=== PATIENT | female | born 1980 | race Caucasian/White ===

== ENCOUNTER 2018-04-15 09:53 | Inpatient (IN) | payer OTHER ==
[~2018-04-15] VITALS: Ht 170.2 cm; Wt 77.1 kg
[2018-04-15 11:11] LABS: ABSOLUTE BASOPHIL COUNT 0 /CUMM (0.0-0.2); ABSOLUTE EOSINOPHIL COUNT 0.1 /CUMM (0.0-0.7); ABSOLUTE GRANULOCYTE CT 5.7 /CUMM (1.4-6.5); ABSOLUTE LYMPH COUNT 1.5 /CUMM (1.2-3.4); ABSOLUTE MONOCYTE COUNT 0.7 /CUMM (0.10-0.60); BASOPHIL % 0.2 % (0.0-2.0); EOSINOPHIL % 0.9 % (0-5); GRANULOCYTE % 71.1 % (42.2-75.2); MEAN CORPUSCULAR HGB 32.3 PG (27.0-31.0); MEAN CORPUSCULAR HGB CONC 33.6 G/DL (33.0-37.0); MEAN CORPUSCULAR VOLUME 96.3 FL (81.0-99.0); MEAN PLATELET VOLUME 9.3 FL (7.4-10.4); PLATELET COUNT 177 /CUMM (130-400); RBC DISTRIBUTION WIDTH 13.6 % (11.5-14.5); RED BLOOD CELL CT 3.53 /CUMM (4.20-5.40); WHITE BLOOD CELL COUNT 8.1 /CUMM (4.8-10.8)
--- NOTE | 2018-04-15 13:56 | History & Physical ---
General Information and HPI MD Statement: I have seen and personally examined KAREN METCALF and documented this H&P. The patient is a 38 year old female at [40] weeks and [5] days gestation who presented with a chief complaint of [LOF]. Source of Information: patient Exam Limitations: no limitations History of Present Illness: 38-year-old, G1 para 0, 40 weeks 5 days intrauterine ,c/o leakage fluid since 2 AM, occasionally cramping pain, denies vaginal bleeding, reports positive movement. care started at 6 weeks, uncomplicated thus far. 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 : 1 Para: 0 Last Menstrual Period: 07/04/2017 Estimated Delivery Date: 04/10/2018 Past master yacht History: none Medical History Blood Transfusion Hx: No Neurological: migraine EENT: NONE Cardiovascular: NONE Respiratory: NONE Gastrointestinal: NONE Hepatic: NONE Renal: NONE Musculoskeletal: NONE Psychiatric: anxiety Endocrine: NONE Blood Disorders: NONE FINANCIAL ADVISER/Reproductive: NONE Surgical History Pertinent Surgical History: none Past Family/Social History Psychosocial History Smoking Status: Former Smoker ETOH Use: denies use Illicit Drug Use: denies illicit drug use Review of Systems Review of Systems Constitutional: Reports: no symptoms. EENTM: Reports: no symptoms. Cardiovascular: Reports: no symptoms. Respiratory: Reports: no symptoms. GI: Reports: no symptoms. Genitourinary: Reports: see HPI. Musculoskeletal: Reports: no symptoms. Skin: Reports: no symptoms. Neurological/Psychological: Reports: no symptoms. Hematologic/Endocrine: Reports: no symptoms. Immunologic/Allergic: Reports: no symptoms. All Other Systems: Reviewed and Negative Exam & Diagnostic Data Last 24 Hrs of Vital Signs/I&O Intake & Output 04/15 1600 08/16 0800 08/16 0000 Intake Total Output Total Balance Patient 77.111 kg Weight Obstetric Exam Wgt Gained During : 41 lbs Pelvimetry: seems adequate Dilation (cm): 0 (FT) Effacement (%): 50 Station: -3 Membranes: SROM Fluid: clear Fundal Height (cm): 40 Multiple Gestation? No Contractions: occasional Infant #1 - FHR Baseline: 140 Category: 1 Estimated Weight: 3500g Presentation: vertex Patient for Induction? No Physical Exam: VSS General : NAD Abdomen; gravid, soft, nontender. ext; DCT (-) Labs Blood Type & Rh: O positive Antibody Screen: negative Hct/Hgb & Platelets #1: 13/41.1%,[id number] Hct/Hgb & Platelets #2: 11.1/36.2%,[id number] Rubella: immune VDRL #1: negative VDRL #2: negative HbsAg: negative HIV #1: negative HIV #2 negative 1 Hr P 3 Hr P/153/108,43 Group B Strep: negative Initial Ultrasound: IUP at 6 wks Anatomy Ultrasound: nl Genetic Testing: negative Last 24 Hrs of Labs/Malik: Laboratory Tests 04/15/18 1045: CBC w Diff NO MAN DIFF REQ, RBC 3.53 L, MCV 96.3, MCH 32.3 H, MCHC 33.6, RDW 13.6, MPV 9.3, Gran % 71.1, Lymphocytes % 18.9 L, Monocytes % 8.9, Eosinophils % 0.9, Basophils % 0.2, Absolute Granulocytes 5.7, Absolute Lymphocytes 1.5, Absolute Monocytes 0.7 H, Absolute Eosinophils 0.1, Absolute Basophils 0, Urine Color YEL, Urine Clarity CLEAR, Urine pH 7.5, Ur Specific Marydel 1.020, Urine Protein NEG, Urine Ketones NEG, Urine Nitrite NEG, Urine Bilirubin NEG, Urine Urobilinogen 0.2, Ur Leukocyte Esterase NEG, Ur Microscopic EXAM NOT REQUIRED, Urine Hemoglobin NEG, Urine Glucose NEG 04/15/18 1013: Membrane Rupture POSITIVE Assessment/Plan Assessment/Plan: 38yo, 40 5/7wks, SROM 1. admit pt, admission labs 2. cervical ripening with cytotec d/w pt in detail, R/B/A of cytotec d/w pt, she understand and agreed, informed consent obtained. 1 st dose cytotec placed at 1 PM 3. will minitor closely As Ranked By This Provider Problem List: 1. 2. SROM (spontaneous rupture of membranes) Core Measures Venous Thromboembolism VTE Risk Factors / No Mechanical VTE Prophylaxis d/t LowRisk-No Interven Req'd No VTE Pharm Prophylaxis d/t LowRisk-No Interven Req'd Attending MD Review Statement Attending Statement Attending MD Statement: examined this patient, discussed with family, discussed w/nursing
--- NOTE | 2018-04-15 21:51 | PN- OBGYN ---
Surgical Brief Attending Note Brief Attending Note: Late entry for 8:30PM pt was monitored at 5:30PM, on TOCO: ctxs q2-3 min, FHR cat I, VE: 1/50%/-3( perRN). pt was allowed to ambulate, around 8PM, pt c/o has mild ctxs pain, on TOCO: ctxs Q 2-4 min, will start pitocin augementation, pain management as needed. plan of care d/w pt, she understand and agreed.
--- NOTE | 2018-04-16 06:14 | PN- OBGYN ---
Surgical Brief Attending Note Brief Attending Note: called by nurse to review the tracing. pt is comfortable with epidural, no complaints, pitocin at 4 mU/min on TOCO: ctxs q 3-4 min, FHR baseline 140, moderate variablity, + acels, intermittent late decels. then quickly return to baseline. cervix 1/70%/-2 will turn to left lateral position, decrease pitocin to 2 mU/min,IV bolus. will monitor tam
--- NOTE | 2018-04-16 09:13 | PN- OBGYN ---
Surgical Brief Attending Note Brief Attending Note: Pt now ruptured 24 hours 1cm dilated. Overnight pt had repetative late decelerations when on pitocin once pit d/c strip became reactive after restarting pitocin lates returned unresponsive to position change iv bolus or ephedrine. After discussion with Dr Stiles and pt plan is for primary c/s for fetus inability to tollerate labor.
--- NOTE | 2018-04-16 12:39 | Operative Report ---
Operative/Inv Procedure Report Surgery Date: 04/16/18 Name of Procedure: primary l/t c/s Pre-Operative Diagnosis: distress Post-Operative Diagnosis: inability to tollerate labor Estimated Blood Loss: 350 Surgeon/Scheduling Assistant: Elieser Phan M.D. Anesthesia: block Monitors: heart rate 1 44 bpm Urine Output: 250 mL Drains: Ahuja Specimens: Placenta Complications: None Condition: Good Operative Indication: distress inability to tolerate labor Operative/Procedure Note Note: After ttopping off spinal anesthesia the patient was placed in the left lateral tilt position Ahuja catheter was placed and heart rate was noted to be 144 bpm after testing for adequacy of anesthesia a Pfannenstiel incision was made in the skin and carried down sharply to the fascia hemostasis was achieved with electrocautery. The Fascia was incised in the midline sharply and the incision was carried out laterally sharply. The fascia was divided from the underlying rectus muscles in the superior and inferior direction sharply. The rectus muscle bundles were divided in the midline sharply. A bladder flap was created on the lower uterine segment. The lower uterine segment was entered in the midline sharply and the incision was carried out laterally bluntly. was delivered through clear amnionic fluid vertex position atraumatically cord was doubly clamped and cut and the infant was handed to the pediatric attendant. The placenta was manually extracted and the interior of the uterus was wiped clean with wet laps. The uterus was externalized. The uterine incision was closed in 2 layers the first a running locking stitch the second an imbricating over the first 0 Polysorb sutures were used after checking for hemostasis the uterus was returned to its normal anatomic position the abdominal/perineal cavity was irrigated copiously once again the uterus was checked for hemostasis which was judged to be excellent. The parietal peritoneum was reapproximated in a simple running fashion with 0 Polysorb suture, subfascial planes were checked for hemostasis which was judged to be excellent. Fascia was then closed with 2 simple running sutures overlapping in the midline. Subcuticular tissues were irrigated copiously and hemostasis was achieved with electrocautery. A subcuticular Wilver's fascia which was placed in a simple running fashion of 2-0 Polysorb. The skin was closed with olya. Her uterus was expressed of a small amount of blood. The only drain left at the end of the procedure was a Ahuja catheter.
[2018-04-16 14:02] VITALS: BP 106/67
[2018-04-17 06:42] LABS: ABSOLUTE BASOPHIL COUNT 0 /CUMM (0.0-0.2); ABSOLUTE EOSINOPHIL COUNT 0.1 /CUMM (0.0-0.7); ABSOLUTE GRANULOCYTE CT 7.6 /CUMM (1.4-6.5); ABSOLUTE LYMPH COUNT 1.5 /CUMM (1.2-3.4); ABSOLUTE MONOCYTE COUNT 0.7 /CUMM (0.10-0.60); BASOPHIL % 0.3 % (0.0-2.0); GRANULOCYTE % 76.7 % (42.2-75.2); HEMATOCRIT 31.8 % (37-47); MEAN CORPUSCULAR HGB 32.6 PG (27.0-31.0); MEAN CORPUSCULAR HGB CONC 33.6 G/DL (33.0-37.0); MEAN CORPUSCULAR VOLUME 97.2 FL (81.0-99.0); MEAN PLATELET VOLUME 9.5 FL (7.4-10.4); PLATELET COUNT 164 /CUMM (130-400); RBC DISTRIBUTION WIDTH 13.7 % (11.5-14.5); RED BLOOD CELL CT 3.28 /CUMM (4.20-5.40); WHITE BLOOD CELL COUNT 9.9 /CUMM (4.8-10.8)
--- NOTE | 2018-04-17 11:59 | PN- Post Delivery/GYN ---
Subjective Subjective: feeling well Review of Systems Constitutional: Denies: chills, fever. EENTM: Denies: blurred vision, double vision, visual changes. Cardiovascular: Denies: chest pain. Respiratory: Denies: cough. Gastrointestinal: Denies: diarrhea, nausea, vomiting. Objective Last 24 Hrs of Vital Signs/I&O vss Vital Signs Date Time Temp Pulse Resp B/P B/P Pulse O2 O2 Flow FiO2 Mean Ox Delivery Rate 04/16 1402 106/67 Physical Exam General Appearance Alert, Oriented X3, Cooperative, No Acute Distress Cardiovascular Regular Rate Lungs Clear to Auscultation Abdomen Soft Pelvic (FEMALE) lochia serosanganous Last 24 Hrs of Labs/Malik: Laboratory Tests 04/17/18 0600: CBC w Diff NO MAN DIFF REQ, RBC 3.28 L, MCV 97.2, MCH 32.6 H, MCHC 33.6, RDW 13.7, MPV 9.5, Gran % 76.7 H, Lymphocytes % 15.2 L, Monocytes % 6.8, Eosinophils % 1.0, Basophils % 0.3, Absolute Granulocytes 7.6 H, Absolute Lymphocytes 1.5, Absolute Monocytes 0.7 H, Absolute Eosinophils 0.1, Absolute Basophils 0 Microbiology 04/16 1235 URINE ROUT: Urine Culture - CAN Cancelled: SPECIMEN NOT RECEIVED. Assessment/Plan Assessment/Plan POD #1 vss afebrile plan ambulate advance diet Problem List: 1. Attending MD Review Statement Attending Statement Attending MD Statement: examined this patient, discussed with family, discussed with nursing
--- NOTE | 2018-04-18 10:12 | PN- Post Delivery/GYN ---
Subjective Subjective: feeling well Review of Systems Constitutional: Denies: chills, fever. EENTM: Denies: blurred vision, double vision, visual changes. Cardiovascular: Denies: chest pain. Respiratory: Denies: cough. Gastrointestinal: Denies: diarrhea, nausea, vomiting. Objective Last 24 Hrs of Vital Signs/I&O vss Physical Exam General Appearance Alert, Oriented X3, Cooperative, No Acute Distress Cardiovascular Regular Rate Lungs Clear to Auscultation Abdomen Soft, oyla intact incision clean and dry Pelvic (FEMALE) lochia serosanganous Current Medications: Current Medications Sig/[place] Start time Last Medication Dose Route Stop Time Status Admin Acetaminophen 1,000 MG Q6P PRN 04/16 1600 04/16 N/A 1 UNIT IV 2136 Acetaminophen 650 MG Q4P PRN 04/16 1245 AC PO Diphenhydramine HCl 50 MG Q6P PRN 04/16 1245 AC IM Diphenhydramine HCl 25 MG Q6P PRN 04/16 1245 AC IV Docusate Sodium 0 .STK-MED ONE 04/17 2217 DC PO Docusate Sodium 100 MG AT BEDTIME 04/17 2200 AC 04/17 PO 2221 Ibuprofen 0 .STK-MED ONE 04/18 0432 DC PO Ibuprofen 0 .STK-MED ONE 04/17 1919 DC PO Ibuprofen 0 .STK-MED ONE 04/17 1158 DC PO Ibuprofen 800 MG Q6P PRN 04/16 1245 AC 04/18 PO 0528 Ketorolac 30 MG Q6P PRN 04/16 1245 DC 04/17 Tromethamine IV 04/17 1244 0036 Lactated Ringer's 1,000 ML Q8H 04/16 1245 04/16 IV 2103 Magnesium Hydroxide 30 ML DAILY NEEDED PRN 04/16 1245 AC PO Oxycodone/ 0 .STK-MED ONE 04/17 2327 DC Acetaminophen PO Oxycodone/ 0 .STK-MED ONE 04/17 1608 DC Acetaminophen PO Oxycodone/ 0 .STK-MED ONE 04/17 1030 DC Acetaminophen PO Oxycodone/ 1 TAB Q4P PRN 04/16 1245 AC 04/17 Acetaminophen PO 1032 Oxycodone/ 2 TAB Q4P PRN 04/16 1245 AC 04/17 Acetaminophen PO 2326 Promethazine HCl 25 MG Q4P PRN 04/16 1245 DC IM 04/17 1244 Promethazine HCl 50 MG Q4P PRN 04/16 1245 DC IM 04/17 1244 Wool Wax Alcohol 1 LESLY PRN FOR PAIN 04/17 0300 AC 04/17 TOP 0301 Assessment/Plan Assessment/Plan POS #2 vss afebrile doing well plan d/c olya and d/c home tomorrow
--- NOTE | 2018-04-19 10:32 | PN- OBGYN ---
Surgical Brief Attending Note Brief Attending Note: pt feeling well. amb / void / roxana po. +bf. pain well controlled. afeb, v/ss nad abd soft nt nd ff inc c/d/i w/ clips sahil min lochia ext tr pedal edema pod 3 s/p c/s, doing well d/c home w/ f/u on thu at and in office in 2 wks d/c clips in 2 d d/c instructions reviewed
== END 2018-04-19 13:10 | DRG 540 ==
LOC: CBCO 09:53 → GNO 10:27
PROVIDERS: Obstetrics & Gynecology
PROC: 3E0P7VZ Introduction of Hormone into Female Reproductive, Via Natural or Artificial Opening (ICD-10-PCS; principal; 2018-04-16)
PROC: 10D00Z1 Extraction of Products of Conception, Low, Open Approach (ICD-10-PCS; principal; 2018-04-16)
DX: O76 Abnormality in fetal heart rate and rhythm complicating labor and delivery (principal); Z3A.40 40 weeks gestation of pregnancy; Z37.0 Single live birth; O61.0 Failed medical induction of labor
CPT/HCPCS: GNOP; GNOS; 36415; 81003; 84112; 87086; J0131; J0690; J1885; J2310; J7120